=== PATIENT | female | born 1960 | race Caucasian/White ===

== ENCOUNTER 2020-06-15 08:25 | Outpatient (REF) | payer BC, SELFPAY ==
[2020-06-15 11:19] LABS: Alanine Aminotransferase 33 U/L (0-31); Albumin Level 4.6 g/dL (3.5-5.0); Alkaline Phosphatase 54 U/L (39-117); Anion Gap 13 (12-20); Aspartate Amino Transferase 30 U/L (5-31); Bilirubin Total 0.7 mg/dL (0.0-1.0); Blood Urea Nitrogen 18 mg/dL (9-16); Calcium 9.3 mg/dL (8.4-10.2); Carbon Dioxide 29 mmol/L (22-29); Chloride 102 mmol/L (96-108); Estimated Glomerular Filt Rate > 60; Glucose Random 97 mg/dL (60-115); Potassium 4.9 mmol/l (3.3-5.1); Sodium 139 mmol/L (135-145); Total Protein 7.3 g/dL (6.5-8.0)
== END 2020-06-15 08:26 | disposition home or self-care (01) ==
LOC: HO.WFDLDS 08:25
PROVIDERS: Visit Provider Family Medicine
DX: R63.4 Abnormal weight loss (principal)
CPT/HCPCS: 80053

== ENCOUNTER 2021-01-02 07:39 | Outpatient (REF) | payer BC, SELFPAY ==
[2021-01-02 10:40] LABS: MANUAL DIFF FLAG NO
[2021-01-02 10:50] LABS: Basophils Absolute Auto 0.1 X10*3/uL (0.0-0.2); Basophils Percent Auto 0.8 % (0-2); Eosinophils Absolute Auto 0.2 X10*3/uL (0.0-0.4); Eosinophils Percent Auto 2.6 % (0-4); Hematocrit 40.9 % (37-47); Hemoglobin 13.9 g/dl (12.0-16.0); Imm Gran Abs Auto 0.02 X10*3/uL (0.00-0.03); Imm Gran Pct Auto 0.3 % (0.0-0.4); Lymphocytes Absolute Auto 2.6 X10*3/uL (1.2-4.9); Lymphocytes Percent Auto 39.2 % (20-40); Mean Corpuscular Hemoglobin 32.1 pg (27.0-33.0); Mean Corpuscular Volume 94.5 fL (80-98); Mean Platelet Volume 10.8 fL (9.4-12.3); Monocytes Absolute Auto 0.7 X10*3/uL (0.1-1.2); Monocytes Percent Auto 9.9 % (2-11); Neutrophils Absolute Auto 3.2 X10*3/uL (2.0-8.3); Neutrophils Percent Auto 47.2 % (45-73); Platelet Count 258 X10*3/uL (160-400); Red Blood Count 4.33 X10*6/uL (4.20-5.50); White Blood Count 6.7 X10*3/uL (4.8-10.8)
[2021-01-02 11:50] LABS: Alanine Aminotransferase 16 U/L (0-31); Albumin Level 4.6 g/dL (3.5-5.0); Alkaline Phosphatase 56 U/L (39-117); Anion Gap 14 (12-20); Aspartate Amino Transferase 22 U/L (5-31); Bilirubin Total 0.5 mg/dL (0.0-1.0); Blood Urea Nitrogen 12 mg/dL (9-16); Calcium 9.8 mg/dL (8.4-10.2); Carbon Dioxide 26 mmol/L (22-29); Chloride 100 mmol/L (96-108); Cholesterol 218 mg/dL; Estimated Glomerular Filt Rate > 60; Glucose Random 93 mg/dL (60-115); HDL Cholesterol 71 mg/dL; LDL Cholesterol Calculated 129 mg/dl; Potassium 4.7 mmol/L (3.3-5.1); Sodium 135 mmol/L (135-145); Total Protein 7.2 g/dL (6.5-8.0); Triglycerides 93 mg/dL
[2021-01-02 12:22] LABS: TSH reflex Free T4 1.13 uIU/mL (0.32-4.0)
== END 2021-01-02 07:40 | disposition home or self-care (01) ==
LOC: HO.WFDLDS 07:39
PROVIDERS: Visit Provider Family Medicine
DX: Z00.00 Encounter for general adult medical examination without abnormal findings (principal); R63.6 Underweight
CPT/HCPCS: 36415; 80053; 80061; 84443; 85025

== ENCOUNTER 2021-04-23 11:28 | Outpatient (REF) | payer BC, SELFPAY ==
--- NOTE | ~2021-04-23 | MM_ITS ---
EXAMINATION: MM SCREENING DIGITAL BREAST TOMOSYNTHESIS, BILATERAL CLINICAL INFORMATION: Screening. Asymptomatic. Prior [id number]-[id number] mammography from [place] currently unavailable. The lifetime risk of breast cancer based on the Tyrer-Cuzick Model is 9%. COMPARISON: None. Radiology department staff will attempt to retrieve prior [id number] mammography to allow for comparison in an addendum report. TECHNIQUE: Digital breast tomosynthesis is performed in both the craniocaudal and mediolateral oblique views along with computer-aided detection (CAD). Synthesized 2D images are generated from the tomosynthesis. FINDINGS: The breasts are heterogeneously dense, which may obscure small masses (ACR BI-RADS breast composition Category c). Breast tissue composition borders on extremely dense. There is no significant mass or architectural abnormality. The axilla and skin contours are unremarkable. Left breast shows no abnormal calcifications. Right breast has tightly grouped punctate calcifications central upper position on synthesized CC view with only a few scattered isolated and coarse calcifications on synthesized right MLO view. The appearance on right CC projection may be partly due to additional digital processing artifact. Patient will be recalled for additional magnification views. MM/MM tomosynthesis screening BI IMPRESSION: 1. Right: Tightly grouped punctate calcifications and/or digital processing artifact central upper breast on synthesized CC view. 2. Left: No mammographic evidence of malignancy. ASSESSMENT: BI-RADS 0: Incomplete - Need Additional Imaging Evaluation RECOMMENDATION: 1. Additional views of the right breast (magnification CC with nipple in profile; magnification ML). 2. Radiology department staff will contact the patient for additional imaging. 3. Radiology department staff will attempt to retrieve prior [id number] mammography to allow for comparison in an addendum report. This patient's information was entered into a reminder system with a target due date for their next mammogram.
== END 2021-04-23 11:29 | disposition home or self-care (01) ==
LOC: HO.MAMMO 11:28
PROVIDERS: Visit Provider Family Medicine
DX: Z12.31 Encounter for screening mammogram for malignant neoplasm of breast (principal)
CPT/HCPCS: 77063; 77067

== ENCOUNTER 2021-05-23 08:37 | Outpatient (REF) | payer BC, SELFPAY ==
--- NOTE | ~2021-05-23 | MM_ITS ---
EXAMINATION: MM DIAGNOSTIC DIGITAL MAMMOGRAPHY, RIGHT CLINICAL INFORMATION: Recall from screening for fine calcifications versus pseudo calcifications from digital processing artifact on right CC view, not seen on prior remote outside exam 2012. Family history breast cancer, grandmother. TC score 9%. COMPARISON: Mammography: 04/23/2021, outside mammography from [facility] 01/29/2012. TECHNIQUE: Digital mammography is performed in the following views: Magnification CC x2, magnification ML x2. FINDINGS: The breasts are heterogeneously dense, which may obscure small masses (ACR BI-RADS breast composition Category c). Breast tissue composition borders on extremely dense. The additional magnification views confirm tightly grouped punctate calcifications 12:00 position mid depth, 5.6 cm from nipple on lateral view. The calcifications are within an area of approximately 3 mm across. They are new from outside mammography 2011. They are arranged in a circular distribution, possibly related to fibroadenomatous change. Results are discussed with the patient at time of visit. There are no additional mammography exams since 2012 to allow for additional comparison. Management options discussed with patient including short interval follow-up and stereotactic biopsy. MM/MM added views RT IMPRESSION: Tightly grouped punctate calcifications mid 12:00 right breast, new from remote prior outside exam 2011. ASSESSMENT: BI-RADS 4: Suspicious (subcategory 4A: Low suspicion for malignancy) RECOMMENDATION: Stereotactic biopsy right breast calcifications. If stereotactic sampling is not performed, then short interval six-month follow-up diagnostic right mammography to include magnification views are recommended. This patient's information was entered into a reminder system with a target due date for their next mammogram.
== END 2021-05-23 08:38 | disposition home or self-care (01) ==
LOC: HO.MAMMO 08:37
PROVIDERS: Visit Provider Family Medicine
DX: R92.1 Mammographic calcification found on diagnostic imaging of breast (principal)
CPT/HCPCS: 77065

== ENCOUNTER 2025-03-30 09:36 | Outpatient (AMB) | payer OTHER, SELFPAY ==
--- NOTE | 2025-03-30 09:43 | MHC.PC.OV ---
Vital Signs 03/30/25 09:48 03/30/25 10:16 Height 5 ft 1 in Weight 103 lb 8 oz BMI 19.6 BP 118/70 Blood Pressure Location Lt brachial Position Sitting Respiration 12 Pulse 113 H 90 Pulse Source Pulse Oximeter Auscultation Temp 97.1 F Temp Source Oral Pulse Oximetry (%) 99 Oxygen Delivery Method Room Air Intake Visit Reasons: CPE? Intake Note: New patient to establish care and cpe Criminal Researcher Required: No Allergies caffeine (From CAFERGOT) Allergy (Intermediate, Verified 03/30/25 09:51) VIOLENTLY ILL ergotamine (From CAFERGOT) Allergy (Intermediate, Verified 03/30/25 09:51) VIOLENTLY ILL Medication List - Last Reconciled 03/30/25 by Pearl Brito, SOCIETY EDITOR- atomoxetine 40 mg PO QAM buspirone 10 mg PO TID itrydmfkfq-kwyxknwqnloar-bvur 50-325-40 mg 1 tab PO Q4H PRN hydroxyzine HCl 25 mg PO PRN lisdexamfetamine (Vyvanse) 40 mg PO QAM PRN mirtazapine 30 mg PO BEDTIME propranolol 10 mg PO TID PRN Tobacco use date assessed: 03/30/25 Dental Screening Dental Screen Date: 03/30/25 Did you have a dental visit in the last 12 months?: Yes Did you have a dental problem in the last 6 months where you did not have access to dental care?: No Was dental information given to patient?: Patient has dentist HPI HPI Comments History of Present Illness Details 64 y/o F with ADHD, migraine headaches, TANO, hx of ectopic , s/p appy, c section, tooth extraction Social: 2 Dtrs, Sep 2024, retired, lives w/ Dtr, Cassandra. 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 Colon cologaurd ordered today Pap Tdap declined, Shingles vaccine 07/2025, DEXA ordered today Specialists: Online Psych Prescriber Counselor Here today to est care & for a CPE Previous PCP: Here years ago, moved to [place], Dr Eid, No records available. ADHD/TANO: stable on current meds; active w/ med prescriber and counselor Newly , of SCC in his nose 09/2024 Migraines: controlled w/ PRN fiorecet; better now in menopause. R knee: sore spot w/ lump on knee. Feels like maybe it went away today. Thickened toe nails on L foot. Mammo, reports bx done of R breast 2022; told benign Uses medical marijuana at HS Review of Systems - Neurological: Reports improvement in migraines. - Psychiatric: Reports anxiety, managed with hydroxyzine and buspirone. - Musculoskeletal: Reports right knee trauma post-moving. - Dermatological: Denies fungal presence on toenails, podiatry referral needed. Large mole on back, eval by Derm told normal. No other concerns or changes. - Gastrointestinal: Denies issues with bowel and bladder function. - Pain: Reports right knee discomfort. Physical Exam General: Well developed, well nourished, in no acute distress. Appears stated age. Head: Normocephalic, atraumatic. Eyes: Pupils are equal, round and reactive to light and accommodation. Conjunctivae are clear. Vision grossly normal. Ears: TMs clear AU, EACS WNL Nose: Patent, without discharge. Neck: Supple, no adenopathy or thyromegaly. Breast: Biopsy done of right breast. Edu on SBE. Lungs: Clear to auscultation bilaterally. No rales, rhonchi or wheeze noted. Good air flow in all rosales. Heart: Regular rate and rhythm. No murmurs, click, rubs or gallops are noted. Abdomen: Bowel sounds present in all quadrants. The abdomen is soft, nontender, with no masses or organomegaly noted. No hernias are noted. : Deferred. 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 Pulses: Peripheral pulses are equal and palpable bilaterally. Extremities: No clubbing, cyanosis nor edema is noted. Toenails on bilat feet thickened, worse on Left; benign exam of R knee Neurologic: Gait and station normal. Cranial Nerves 2-12 intact. Motor strength grossly symmetrical and intact. No sensory loss. Balance normal. Skin: No rashes, ulcers, or lesions noted. Turgor is good. Skin color is good. Hair and nails are without abnormalities. Psych: Normal eye contact, affect and mood appropriate, and normal interactions. Patient is alert and appropriate to context. Results - Labs pending retrieval from [facility]. Requested. - Diagnostic imaging summary: Mammo 2024 requested - Screening test: Colon cancer screening via Cologuard ordered. Discussion Notes I discussed the management of the patient's chronic conditions including ADHD, generalized anxiety disorder, migraine headaches, and insomnia. We reviewed the current medications and addressed the need for referral to podiatry for nail changes. I explained the risks and benefits of continuing medical marijuana use, emphasizing the process of obtaining licensure in [place]. Consent was obtained for the mammogram, bone density, and colon cancer screening. It's vital that labs from recent work be acquired to ensure comprehensive oversight. I outlined follow-up protocols, endorsed the download of our patient portal navjot for enhanced communication, and confirmed understanding of flu vaccination timelines. Patient was given time to ask questions. All questions were answered to their satisfaction. Assessment and Plan 1. ADHD - Continue current regimen and psychiatric consult along w. counseling. 2. Anxiety - Maintain medication. Psychiatric to manage 3. Migraines - Monitor post-menopausal improvement. - Cont fiorecet, i can refill this PRN 4. Toenail fungus - Podiatry referral for management. 6. Screening - Mammogram, bone density, and Cologuard tests ordered. Labs pending. I will request old records, labs and mammo and review; I will outreach if sooner FU is needed. Otherwise RTO 1 year CPE, sooner PRN Patient Instructions - Follow up with creative strategist for toenail evaluation. - Complete the Cologuard test and return promptly. - Utilize our navjot for appointments and inquiries. - Stay updated on flu vaccine schedule. - Continue medication for ADHD and anxiety. - Report any changes in health or medication response. Consent Patient was informed and verbally consented to the use of an ambient scribe for clinic note documentation during this visit. An additional 35 minutes was spent addressing the problem(s) noted at todays visit. This includes time spent before the visit reviewing the chart, time spent during the visit, and time spent after the visit on documentation reviewing laboratory results, diagnostic imaging, medications, performing a medically necessary evaluation, counseling on diagnoses, care coordination, ordering appropriate tests, ordering appropriate medications, review of tests performed by other providers, reporting test results with the patient, communication with other healthcare providers. [facility] Medical History (Updated 03/30/25 @ 10:27 by Pearl Brito [facility]) Ectopic (~1988) Headache Hx of mammogram (~2024) Migraines Shingles Surgical History (Updated 03/30/25 @ 09:55 by Allyson Marte MA) History of appendectomy History of section Hx of colonoscopy (~2023) Loss of teeth due to extraction Family History (Updated 03/30/25 @ 09:56 by Allyson Marte MA) Father COPD (chronic obstructive pulmonary disease) CHF (congestive heart failure) HTN (hypertension) AAA (abdominal aortic aneurysm) Asthma Heart failure Mother Neuropathy Legally blind Daughter No problems noted. Daughter No problems noted. Social History (System 06/09/23 @ 11:34 by Zulma Warren) Household Members: Children Both parents involved: No Caregiver staying overnight: No Housing: House Are you a primary career technical education instructor to a significant other at home: No Do you presently have visiting nurse or other home services: No 75 years or older and lives alone: No Alcohol intake: never Patient Tobacco Use Status: Never used Tobacco e-Cigarette/Vaping Use: Never Used Second Hand Smoke Exposure: No service: No Current occupational status: retired Cognitive needs: No Hearing needs: No Vision needs: Yes (reading glasses) Questionnaire PHQ-9 Over the last 2 weeks, how often have you been bothered by any of the following problems? 1. Little interest or pleasure in doing things: several days 2. Feeling down, depressed, or hopeless: several days 3. Trouble falling or staying asleep, or sleeping too much: not at all 4. Feeling tired or having little energy: several days 5. Poor appetite or overeating: several days 6. Feeling bad about yourself - or that you are a failure or have let yourself or your family down: not at all 7. Trouble concentrating on things, such as reading the newspaper or watching television: not at all 8. Moving or speaking so slowly that other people could have noticed. Or the opposite - being so fidgety or restless that you have been moving around a lot more than usual: not at all 9. Thoughts that you would be better off or of hurting yourself in some way: not at all Total score: 4 Depression Screening Interpretation: Negative Depression Screening Done: Yes 42053 - PHQ-9 Billing: Yes Source: Developed by Drs. James Garzon, May Torres, Almas Haywood and colleagues, with an educational alex from [employer]. Thrive Questionnaire Date Thrive assessed: 03/30/25 I am a: Patient What is your living situation today?: I have a steady place to live Within the past 12 months, did the food you bought not last and you didn't have the money to get more?: Never true Within the past 12 months, did you worry whether your food would run out before you got money to buy more?: Never true Do you have trouble paying for medicines?: No Do you have trouble getting transportation to medical appointments?: No Do you have trouble paying your heating and electricity bill?: No Do you have trouble taking care of your child, family member or friend?: No Do you have trouble with day-to-day activities such as bathing, preparing meals, shopping, managing finances, etc.?: No Are you currently unemployed and looking for a job?: No Are you interested in more education?: No Please select the resources that you would like help with: None Currently or been in a relationship where the following occur: No concerns reported THRIVE Score: 0 AUDIT C Alcohol Use Questionnaire (AUDIT-C) 1. How often do you have a drink containing alcohol?: Never 3. How often do you have six or more drinks on one occasion?: Never Total Score: 0 Score Reviewed/Action Taken: Yes TANO-7 AMB Questionnaire TANO-7 Date TANO - 7 assessed: 03/30/25 Feeling nervous, anxious, or on edge: 1 = Several days Not being able to stop or control worryin = Not at all Worrying too much about different things: 0 = Not at all Trouble relaxin = Several days Being so restless that it is hard to sit still: 1 = Several days Becoming easily annoyed or irritable: 0 = Not at all Feeling afraid as if something awful might happen: 0 = Not at all Total TANO-7 score (0-4 normal; 5-9 mild; 10-14 moderate; 15-21 severe): 3 Source: Developed by May Day Kurt Kroenke and colleagues, with an educational alex from [employer]. TANO-7 Assessment Billing TANO-7 Assessment Tool: TANO-7 Assessment 56215 Physical exam (Primary Care) Vital Signs: Last Vital Signs Temp 97.1 F 03/30/25 09:48 Pulse 113 H 03/30/25 09:48 Resp 12 03/30/25 09:48 BP 118/70 03/30/25 09:48 Pulse Ox 99 03/30/25 09:48 Oxygen Delivery Method Room Air 03/30/25 09:48 BMI result Body Mass Index 19.6 Tobacco/Smoking Status: Tobacco use Status Tobacco use date assessed 03/30/25 03/30/25 09:49 Patient Tobacco Use Status Never used Tobacco 03/30/25 09:49 e-Cigarette/Vaping Use Never Used 03/30/25 09:49 PHQ-9: PHQ-9 Score PHQ-9: Total score 4 03/30/25 09:45 Depression Screening Interpretation: Negative Thrive Assessment: Date of Thrive Assessment Date Thrive assessed 03/30/25 03/30/25 09:45 Currently or been in a relationship where the following occur: No concerns reported Coding Level of Care Code New Pt Level 4 (63275) New Pt Prev Care 40-64y(19168) Diagnoses Encounter to establish care with new provider Z76.89 Anxiety F41.9 Migraine with aura, not intractable, without status migrainosus G43.109 Attention deficit hyperactivity disorder (ADHD), predominantly inattentive type F90.0 Attention deficit-hyperactivity disorder type: predominantly inattentive Menopause Z78.0 Tetanus, diphtheria, and acellular pertussis (Tdap) vaccination declined Z28.21 Underweight R63.6 Screening for colon cancer Z12.11 Breast cancer screening by mammogram Z12.31 Onychomycosis B35.1 Marihuana user F12.90 Acute pain of right knee M25.561 Chronicity: acute Encounter for general adult medical examination without abnormal findings Z00.00 Additional Codes TANO-7 Assessment Billing - TANO-7 Assessment Tool: TANO-7 Assessment 25127 ([id number]) PHQ-9 - 38925 - PHQ-9 Billing: Yes ([id number]) Assessment & Plan Assessment & Plan (1) Encounter to establish care with new provider: Code(s): Z76.89 - Persons encountering health services in other specified circumstances (2) Anxiety: Comment: managed by outside prescriber and counselor Code(s): F41.9 - Anxiety disorder, unspecified Category: Medical (3) Migraine with aura, not intractable, without status migrainosus: Code(s): G43.109 - Migraine with aura, not intractable, without status migrainosus Category: Medical (4) ADHD: Comment: managed by outside prescriber and counselor Code(s): F90.9 - Attention-deficit hyperactivity disorder, unspecified type Category: Medical Qualifiers: Attention deficit-hyperactivity disorder type: predominantly inattentive Qualified Code(s): F90.0 - Attention-deficit hyperactivity disorder, predominantly inattentive type (5) Menopause: Comment: DEXA ordered 2024 Code(s): Z78.0 - Asymptomatic menopausal state Category: Medical (6) Tetanus, diphtheria, and acellular pertussis (Tdap) vaccination declined: Code(s): Z28.21 - Immunization not carried out because of patient refusal Category: Medical (7) Underweight: Comment: uses remeron Code(s): R63.6 - Underweight Category: Medical (8) Screening for colon cancer: Comment: cologaurd 2020, ordered today Code(s): Z12.11 - Encounter for screening for malignant neoplasm of colon Category: Medical (9) Breast cancer screening by mammogram: Comment: 2024, [facility] Code(s): Z12.31 - Encounter for screening mammogram for malignant neoplasm of breast Category: Medical (10) Onychomycosis: Comment: pod. referral [facility] Code(s): B35.1 - Tinea unguium Category: Medical (11) Marihuana user: Comment: medical Code(s): F12.90 - Cannabis use, unspecified, uncomplicated Category: Medical (12) Right knee pain: Comment: benign exam; monitor; if cont. reach out Code(s): M25.561 - Pain in right knee Category: Medical Qualifiers: Chronicity: acute Qualified Code(s): M25.561 - Pain in right knee (13) Encounter for general adult medical examination without abnormal findings: Code(s): Z00.00 - Encounter for general adult medical examination without abnormal findings Category: Medical Plan . Orders: Orders XR DEXA axial skeleton Today Z13.820 - Encounter for screening for osteoporosis, Z78.0 - Asymptomatic menopausal state MM tomosynthesis screening BI Today Z12.31 - Encounter for screening mammogram for malignant neoplasm of breast Referrals Cologuard Test Z12.11 - Encounter for screening for malignant neoplasm of colon, Z12.12 - Encounter for screening for malignant neoplasm of rectum Podiatry Referral B35.1 - Tinea unguium Patient Instructions: Walk-In Care (Urgent Care): We Make it Easy Walk-in for urgent medical issues such as: ? Seasonal Allergies ? Insect Bites ? Cough ? Diarrhea ? Acute Asthma Attacks ? Back, Knee or Joint Pain ? Ear Infection ? Fever without a Rash ? Headaches ? Nausea ? Madelia Eye, Rash or Skin Irritation ? Sore Throat ? Sports Physicals ? Vomiting Most insurances are accepted. Patients do not need to be part of the [facility] to seek care at the walk-in clinic. Locations [facility] [place] [address] ? [phone] [facility] Walk-In Care in [place] provides services to ages 18 and over. Open Thursday-Thursday: 8 a.m. to 5 p.m. and Thursday: 9 a.m. to 3 p.m.* *Hours may vary due to staffing availability. To confirm Walk-In Care hours in [place], please call [phone]. [address] [place] [address] ? [phone] [facility] Walk-In Care in [place] provides services to ages 12 and over. Open Thursday-Thursday: 8 a.m. to 5 p.m. Hours may vary due to staffing availability. To confirm Walk-In Care hours in [place], please call [phone]. LABORATORY SERVICES: [facility] Lab ? Primary Location [address] [place] [address] Thursday through Thursday 6:00 AM ? 5:00 PM Thursday 7:00 AM ? 11:00 AM* [phone] The [facility] Lab is centrally located near the front entrance of the [facility] for easy outpatient access. Convenient parking is provided for outpatients. *Hours may vary due to staffing availability. To confirm Laboratory hours for any location, please call [phone]. Offsite Location For your convenience, we offer offsite laboratory draw stations at the following locations: [address] [facility] [place] [address] [facility] [address] [facility], [address], [place] Thursday through Thursday 7:30 AM ? 1:00 PM* [phone] *Hours may vary due to staffing availability. To confirm Laboratory hours for any location, please call [phone]. [place] ? [facility] [address] [facility] Thursday through Thursday 6:00 AM ? 3:30 PM* Thursday 6:30 AM ? 3 PM* [phone] *Hours may vary due to staffing availability. To confirm Laboratory hours for any location, please call [phone]. [address] [facility] Thursday through Thursday 7:30 AM ? 4:00 PM* [phone] *Hours may vary due to staffing availability. To confirm Laboratory hours for any location, please call [phone] [place] [address] Thursday through 9:00 AM ? 4:00 PM* *Hours may vary due to staffing availability. To confirm Laboratory hours for any location, please call [phone]. Appointments are not necessary. Walk-ins are welcome. Like all the departments throughout the [facility], our Lab undergoes frequent reviews to ensure the quality and accuracy of test results, and our staff takes special pride in its status as a nationally accredited facility. Patient Portal: ONE PATIENT. ONE RECORD. BETTER CARE. [facility] has a fully integrated, cutting-edge mobile electronic health information system that has revolutionized the way we care for our patients and manage our organization. This system improves communication and coordination enabling us to provide safe, higher-quality care, and an overall positive experience for staff and patients. Our first priority, as always, is to deliver the highest quality care possible. The system is running in the background supporting that priority. This portal is for all [facility] services and practices. If you are experiencing any technical difficulties with enrolling or logging into the Patient Portal please complete the [facility] Patient Portal Technical Support Form. [facility] now offers a new secure on-line interactive tool for patients to review their health information ? ?Patient Portal. This interactive web portal will enable patients and their families to take an active role in their care by providing easy, secure access to their health information via the internet. The Patient Portal provides patients with instant access to their health information, including laboratory results, medications, allergies, demographic information, visit history, and more. In addition to managing their own care, parents and health care proxies with authorized consent will appreciate the ability to access the records of those individuals for whom they provide care. Please note: if you wish to gain access (Proxy) to another patient?s portal, you will be required to come to the Medical Records Department in person at [facility]. Both the patient giving proxy access and the proxy will need to provide photo identification and complete the appropriate authorization. The Patient Portal also allows track their appointments online. The [facility] Patient Portal also saves patients time by allowing them to submit updates to their demographic and contact information prior to their visits. Portal email notifications will also alert patients to any new activity on their portal, such as test results and new appointments. In order to initially enroll in the [facility] Patient Portal, you will need to enter some required information including the following: your [facility] Medical Record number your personal home email address name date of Please note: In order to enroll in the [facility] Patient Portal, we need to have your email address on file in your electronic medical record. ?The email address needs to be specific for one person (yourself) in order for your Portal enrollment to be successful. ?You can update your email address in person with our Registration staff when you are registering for a hospital visit. ?Otherwise, you will need to come to the Health Information Management (Medical Records) Department at [facility]. ?We are open from Thursday ? Thursday from 7:30 a.m. ? 4:30 p.m. ?You will be required to present a photo id. Once you have successfully enrolled in the Patient Portal, you will receive a one-time user id and password for the Portal, sent to your email address. ?This will allow you to log into the Patient Portal within 99 hrs and reset your own logon id and password, and define personal security questions. ?Once your permanent login and password have been set, you can log into the [facility] Patient Portal at any time via the blue button above or from the Portal Logon button on any page of the [facility] website. [facility] encourage all of our patients to enroll in Patient Portal as it presents a valuable opportunity for patients and their families to actively participate in their care and stay healthy Welcome to [facility]. ?We look forward to working with you. Health screenings for women You should visit your health care provider from time to time, even if you are healthy. The purpose of these visits is to: Screen for medical issues Assess your risk for future medical problems Encourage a healthy lifestyle Update vaccinations and other preventive care services Help you get to know your provider in case of an illness Information Even if you feel fine, you should still see your provider for regular checkups. These visits can help you avoid problems in the future. For example, the only way to find out if you have high blood pressure is to have it checked regularly. High blood sugar and high cholesterol levels also may not have any symptoms in the early stages. A simple blood test can check for these conditions. There are specific times when you should see your provider or receive specific health screenings. The [place] Preventive Services Task Force publishes a list of recommended screenings. Below are screening guidelines for women ages 18 to 39. BLOOD PRESSURE SCREENING Your blood pressure should be checked at least once every 3 to 5 years if: Your blood pressure is in the normal range (top number less than 120 mm Hg and bottom number less than 80 mm Hg) You don't have risk factors for high blood pressure Ask your provider if you need your blood pressure checked more often if: The top number is 120 to 129 mm Hg or the bottom number is 70 to 79 mm Hg You have diabetes, heart disease, kidney problems, are overweight, or have certain other health conditions You have a first-degree relative with high blood pressure You are Black You had high blood pressure during a If the top number is 130 mm Hg or greater or the bottom number is 80 mm Hg or greater, this is considered stage 1 hypertension. Schedule an appointment with your provider to learn how you can reduce your blood pressure. Watch for blood pressure screenings in your area. Ask your provider if you can stop in to have your blood pressure checked. BREAST CANCER SCREENING Experts do not agree about the benefits of breast self-exams in finding breast cancer or saving lives. Talk to your provider about what is best for you. A screening mammogram is not recommended for most women under age 40. Your provider may discuss and recommend mammograms, MRI scans, or ultrasounds if you have an increased risk for breast cancer, such as: A mother or sister who had breast cancer at a young age (most often starting screening earlier than the age the close relative was diagnosed) You carry a high-risk genetic marker CERVICAL CANCER SCREENING Cervical cancer screening should start at age 21 years unless your provider advises otherwise. After the first test: Women ages 21 through 29 should have a Pap test every 3 years. Exoprts do not agree on whether HPV testing is recommended for this age group. Women ages 30 through 65 should be screened with either a Pap test every 3 years or the HPV test every 5 years or both tests every 5 years (called cotesting ). Women who have been treated for precancer (cervical dysplasia) should continue to have Pap tests for 20 years after treatment or until age 65, whichever is longer. If you have had your uterus and cervix removed (total hysterectomy), and you have not been diagnosed with cervical cancer or precancer (high grade cervical neoplasia), you do not need cervical cancer screening. CHOLESTEROL SCREENING Cholesterol screening should begin at: Age 45 for women with no known risk factors for coronary heart disease Age 20 for women with known risk factors for coronary heart disease Repeat cholesterol screening should take place: Every 5 years for women with normal cholesterol levels More often if changes occur in lifestyle (including weight gain and diet) More often if you have diabetes, heart disease, kidney problems, or certain other conditions DIABETES SCREENING You should be screened for diabetes starting at age 35 and then repeated every 3 years if you have no risk factors for diabetes. Screening may need to start earlier and be repeated more often if you have other risk factors for diabetes, such as: You have a first degree relative with diabetes. You are overweight or have obesity. You have high blood pressure, prediabetes, or a history of heart disease. Screening for diabetes should be done if you are planning to become and you are overweight and have other risk factors such as high blood pressure. DENTAL EXAM Go to the dentist once or twice every year for an exam and cleaning. Your dentist will evaluate if you need more frequent visits. EYE EXAM Have an eye exam every 5 to 10 years before age 40. If you have vision problems, have an eye exam every 2 years or more often if recommended by your provider. You should have an eye exam that includes an examination of your retina (back of your eye) at least every year if you have diabetes. IMMUNIZATIONS Commonly needed vaccines include: Flu shot: get one every year. COVID-19 vaccine: ask your provider what is best for you. Tetanus-diphtheria and acellular pertussis (Tdap) vaccine: have one at or after age 19 as one of your tetanus-diphtheria vaccines if you did not receive it as an adolescent. Tetanus-diphtheria: have a booster (or Tdap) every 10 years. Varicella vaccine: receive 2 doses if you never had chickenpox or the varicella vaccine. Hepatitis B vaccine: receive 2, 3, or 4 doses, depending on your exact circumstances. Measles, mumps, and rubella (MMR) vaccine: receive 1 to 2 doses if you are not already immune to MMR. Your provider can tell you if you are immune. Ask your provider about the human papillomavirus (HPV) vaccine if: You have not received the HPV vaccine in the past You have not completed the full vaccine series (you should catch up on this shot) Ask your provider if you should receive other immunizations if you have certain health problems that increase your risk for some diseases such as pneumonia. INFECTIOUS DISEASE SCREENING Women who are sexually active should be screened for chlamydia and gonorrhea up until age 25. Women 25 years and older should be screened for chlamydia and gonorrhea if at high risk. Screening for hepatitis C: All adults ages 18 to 79 should get a one-time test for hepatitis C. people should be screened at every . Screening for human immunodeficiency virus (HIV): All people ages 15 to 65 should get a one-time test for HIV. Depending on your lifestyle and medical history, you may also need to be screened for infections such as syphilis and HIV, as well as other infections. PHYSICAL EXAM All adults should visit their provider from time to time, even if they are healthy. The purpose of these visits is to: Screen for disease Assess your risk of future medical problems Encourage a healthy lifestyle Update your vaccinations and other preventive care services Maintain a relationship with a provider in case of an illness Your height, weight, and BMI should be checked at every exam. During your exam, your provider may ask you about: Depression and anxiety Diet and exercise Alcohol and tobacco use Safety issues, such as using seat belts, smoke detectors, and intimate partner violence Your medicines and risk for interactions SKIN SELF-EXAM Your provider may check your skin for signs of skin cancer, especially if you're at high risk, such as if you: Have had skin cancer before Have close relatives with skin cancer Have a weakened immune system OTHER SCREENING Talk with your provider about colon cancer screening if you have a strong family history of colon cancer or polyps, or if you have had inflammatory bowel disease or polyps yourself. Routine bone density screening of women under 40 is not recommended.
[2025-03-30 09:48] VITALS: BP 118/70; PULSE 113; RESP 12; TEMP 36.2; O2SAT 99; BMI 19.6
[2025-03-30 10:16] VITALS: PULSE 90
== END 2025-03-30 10:21 | disposition home or self-care (01) ==
LOC: HO.HMCFM 09:37
PROVIDERS: PCP Nurse Practitioner Family; Visit Provider Nurse Practitioner Family
DX: Z00.00 Encounter for general adult medical examination without abnormal findings (principal); G43.109 Migraine with aura, not intractable, without status migrainosus; F41.9 Anxiety disorder, unspecified; F90.0 Attention-deficit hyperactivity disorder, predominantly inattentive type; R63.6 Underweight; Z76.89 Persons encountering health services in other specified circumstances; Z78.0 Asymptomatic menopausal state; Z28.21 Immunization not carried out because of patient refusal; Z12.11 Encounter for screening for malignant neoplasm of colon; B35.1 Tinea unguium; F12.90 Cannabis use, unspecified, uncomplicated; M25.561 Pain in right knee

== ENCOUNTER → 2025-03-30 09:36 | Outpatient (BNVA) | payer OTHER, SELFPAY | PROVIDERS: PCP Nurse Practitioner Family; Visit Provider Nurse Practitioner Family | DX: Z00.00 Encounter for general adult medical examination without abnormal findings (principal); G43.909 Migraine, unspecified, not intractable, without status migrainosus; K21.9 Gastro-esophageal reflux disease without esophagitis; F41.9 Anxiety disorder, unspecified; B35.1 Tinea unguium; G43.109 Migraine with aura, not intractable, without status migrainosus; F90.0 Attention-deficit hyperactivity disorder, predominantly inattentive type; R63.6 Underweight; F12.90 Cannabis use, unspecified, uncomplicated; M25.561 Pain in right knee; Z78.0 Asymptomatic menopausal state; Z28.21 Immunization not carried out because of patient refusal; Z76.89 Persons encountering health services in other specified circumstances | CPT/HCPCS: 96127 ==

== ENCOUNTER 2025-04-24 12:53 | Outpatient (AMB) | payer OTHER, SELFPAY ==
--- NOTE | 2025-04-24 13:12 | A.OFFVIS_ITS ---
Vital Signs 3 04/24/25 13:15 Height 5 ft 1 in Weight 103 lb BMI 19.5 Intake Visit Reasons: New Pt- Bilateral tinea unguium Intake Note: Hector is a 64 year old female who presents today as a new patient for an evaluation of her bilateral tinea unguium. She mentions that this has been going on for about 10 years. She has not tried OTC fungal cream recently. Patient report it is worst on her left toes and mild on the right. Allergies caffeine (From CAFERGOT) Allergy (Intermediate, Verified 04/24/25 13:15) VIOLENTLY ILL ergotamine (From CAFERGOT) Allergy (Intermediate, Verified 04/24/25 13:15) VIOLENTLY ILL Medication List - Last Reconciled 04/24/25 by Linn Breen DPM buspirone 10 mg PO TID [id number] 50-325-40 mg 1 tab PO Q4H PRN hydroxyzine HCl 25 mg PO PRN lisdexamfetamine (Vyvanse) 40 mg PO QAM PRN mirtazapine 30 mg PO BEDTIME HPI Comments Details: This patient is a 64 year old female with a PMH as seen below who presents today for fungal toenails. Patient states she has had this condition for 15 years but has not done any previous treatment. She states she previously noticed it on 1 toe to the left foot, but then noticed it spreading to the remaining 4 toes. She states she is worried about spreading to the right foot. 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 She denies any recent trauma. Denies any other pedal concerns. Denies any nausea vomiting fever or chills. [facility] Medical History Shingles Migraines Headache Hx of mammogram (~2024) Ectopic (~1988) Surgical History Hx of colonoscopy (~2023) Loss of teeth due to extraction History of section History of appendectomy Family History (Updated 03/30/25 @ 09:56 by Allyson Marte MA) Father COPD (chronic obstructive pulmonary disease) CHF (congestive heart failure) HTN (hypertension) AAA (abdominal aortic aneurysm) Asthma Heart failure Mother Neuropathy Legally blind Daughter No problems noted. Daughter No problems noted. Social History (Updated 03/30/25 @ 09:53 by Allyson Marte MA) Household Members: Children Housing: House Are you a primary child day care teacher to a significant other at home: No Do you presently have visiting nurse or other home services: No Alcohol intake: never Patient Tobacco Use Status: Never used Tobacco e-Cigarette/Vaping Use: Never Used Second Hand Smoke Exposure: No service: No Current occupational status: retired Cognitive needs: No Hearing needs: No Vision needs: Yes (reading glasses) Review of Systems Const All systems reviewed & are unremarkable except as noted in HPI and below Physical Exam Vital Signs: BMI result Body Mass Index 19.5 Extrem Other: Left lower extremity focused physical exam: Derm: Toenails noted to be slightly elongated, incurvated, and thickened with subungual debris noted x5. No open lesions abrasions or wounds noted. No clinical signs of infection. Skin turgor soft and within normal limits. Toenails to the right noted to be slightly elongated. Vascular: DP/PT pulses palpable. Capillary refill time less than 3 seconds. No varicosities noted. Pedal hair noted. Neuro: Protective sensation is grossly intact. Musculoskeletal: No pain on palpation to the forefoot and nails. Range of motion of the forefoot and hindfoot within normal limits. Gait within normal limits. Ankle/foot/toe images: 2 1. Left foot toenails Office Procedures AMB Debridement/Avulsion Podia 33247-Mreyfkqmptm of Nail <6 Nail Biopsy: [id number] Nail unit biopsy Procedure code (CPT) selection complete Office Meds lidocaine HCl 10 mg/mL (1 %) injection solution Performing Provider: Linn Breen DPM Performing Location: [facility] Documented (not given) by: Linn Breen DPM on 04/24/25 13:52 Reason Not Given: Not Medically Necessary Results Reviewed Results Reviewed: Patient states she will be obtaining new labs in the next coming weeks. Discussed with patient importance of LFTs being within normal limits in ordered to be started on oral antifungal medication. Assessment & Plan Assessment & Plan (1) [place]: Comment[place] [facility] [place]s): B35.1 - Tinea unguium Category: Medical (2) Nail dystrophy: Code(s): L60.3 - Nail dystrophy Category: Medical (3) Nail disorder: Code(s): L60.9 - Nail disorder, unspecified Category: Medical Plan Discussed diagnosis of onychomycosis with the patient. Discussed various treatment options such as topical medication and oral medication. Recommend patient start with topical medication at this time. Obtained nail biopsies of left foot toenails x5 to be sent to pathology. Discussed with the patient topical medication normally takes approximately 9 months to 1 year or longer for significant changes to be noted. Discussed with patient importance of LFTs being within normal limits in order to start oral medication. Discussed with patient to keep her feet clean and dry. Prescribed ciclopirox 8% topical solution to be applied daily. Discussed with patient when using the topical solution to file down the previous layer prior to a new application of the topical solution. Patient is to return to the office in 1 month for re-evaluation of nails, evaluation of labs, and possible oral medication. Orders: Orders 2 Surgical Today B35.1 - Tinea unguium, L60.3 - Nail dystrophy, L60.9 - Nail disorder, unspecified AMB Debridement/Avulsion Podiatry Today B35.1 - Tinea unguium, L60.3 - Nail dystrophy, L60.9 - Nail disorder, unspecified AMB Nail Biopsy Today B35.1 - Tinea unguium, L60.3 - Nail dystrophy, L60.9 - Nail disorder, unspecified Medications: New 2 ciclopirox 8% 1 appl topical BEDTIME 6.6 mL 0RF Onychomycosis 4 weeks B35.1 - Tinea unguium, L60.3 - Nail dystrophy, L60.9 - Nail disorder, unspecified Coding Level of Care Code New Pt Level 3 (14151) Diagnoses Onychomycosis B35.1 Nail dystrophy L60.3 Nail disorder L60.9 CPT Codes Skin Debridement - CPT: 34960-Jehwjrrnqwr of Nail <6 ([id number]) Skin Debridement - CPT: 52039 Nail unit biopsy ([id number]) Time Spent (min) 30
[2025-04-24 13:15] VITALS: BMI 19.5
== END 2025-04-24 13:41 | disposition home or self-care (01) ==
LOC: HO.HPODS 12:54
PROVIDERS: PCP Nurse Practitioner Family; Visit Provider Student in an Organized Health Care Education/Training Program
DX: B35.1 Tinea unguium (principal); L60.3 Nail dystrophy; L60.9 Nail disorder, unspecified
CPT/HCPCS: 11720; 99204

== ENCOUNTER 2025-04-24 13:34 | Outpatient (REF) | payer OTHER, SELFPAY | END 2025-04-24 13:35 | disposition home or self-care (01) | LOC: HO.LNP 13:34 | PROVIDERS: Visit Provider Student in an Organized Health Care Education/Training Program | DX: B35.1 Tinea unguium (principal); L60.3 Nail dystrophy; Z79.899 Other long term (current) drug therapy | CPT/HCPCS: 88304; 88312 ==

== ENCOUNTER 2025-05-23 13:24 | Outpatient (REF) | payer OTHER, SELFPAY ==
--- NOTE | ~2025-05-23 | MM_ITS ---
EXAMINATION: DXA BONE DENSITY AXIAL HISTORY: Z13.820 - Encounter for screening for osteoporosis TECHNIQUE: [employer] Dual energy absorptiometry (DEXA) of the lumbar spine, total left hip, and femoral neck was performed. COMPARISON: There are no prior studies for comparison. FINDINGS: The bone mineral density of the lumbar spine is 1.073 g/cm2, corresponding to a T-score of -0.9, and a Z-score of 1.2. This is indicative of normal bone mineral density. The bone mineral density of the left total hip is 0.780 g/cm2, corresponding to a T-score of -1.8, and a Z-score of -0.3. This is indicative of osteopenia. The bone mineral density of the left femoral neck is 0.694 g/cm2, corresponding to a T-score of -2.5, and a Z-score of -0.7. This is indicative of osteoporosis. MM/XR DEXA axial skeleton IMPRESSION: Based on bone mineral density, and according to World Health Organization (WHO) criteria, the diagnosis is consistent with osteoporosis. Statistically, 68% of repeat scans fall within 1 SD (+/- 0.010 g/cm2 for AP spine L1-L4) and 1 SD (+/- 0.012 g/cm2 for femur total) FRAX is a trademark of the [employer] [facility] [employer], a World Health Organization (WHO) Collaborating Center. Electronically signed by: James Means MD 05/23/2025 01:50 PM EDT
== END 2025-05-23 13:25 | disposition home or self-care (01) ==
LOC: HO.MAMMO 13:24
PROVIDERS: PCP Nurse Practitioner Family; Visit Provider Nurse Practitioner Family
DX: Z13.820 Encounter for screening for osteoporosis (principal); Z78.0 Asymptomatic menopausal state
CPT/HCPCS: 77080

== ENCOUNTER → 2025-05-23 13:30 | Outpatient (BNV) | payer OTHER, SELFPAY | PROVIDERS: PCP Nurse Practitioner Family; Visit Provider Radiology Diagnostic Radiology | DX: E28.39 Other primary ovarian failure (principal) | CPT/HCPCS: 77080 ==

== ENCOUNTER 2025-05-24 09:57 | Outpatient (AMB) | payer OTHER, SELFPAY ==
--- NOTE | 2025-05-24 10:09 | A.OFFVIS_ITS ---
Vital Signs 05/24/25 10:21 Height 5 ft 1 in Weight 103 lb BMI 19.5 Intake Visit Reasons: Follow Up Bilateral tinea unguium Intake Note: Hector is a 65 year old female who presents today for a follow up on her bilateral tinea unguium. During her last visit she was prescribed ciclopirox 8% topical solution to be applied once daily. Pt states she has been using the medications and finds that it has been helping her relieve her symptoms. She has been using the ciclopirox nightly and is almost done with course. Allergies caffeine (From CAFERGOT) Allergy (Intermediate, Verified 05/24/25 10:22) VIOLENTLY ILL ergotamine (From CAFERGOT) Allergy (Intermediate, Verified 05/24/25 10:22) VIOLENTLY ILL HPI Comments Details: The patient is a 65-year-old female presenting for follow-up for left foot onychomycosis. The condition has been improving with the use of ciclopirox applied nightly. The patient reports no adverse reactions to the treatment and notes that the nail color is becoming clearer, and a reduction in subungual debris. The patient states she applies the ciclopirox to bilateral toenails. The patient engages in daily ROM exercises of the feet and reports improved mobility in her toes. Denies any other pedal concerns. Denies any nausea vomiting fever or chills. COUNTS INCLUDE 234 BEDS AT THE [facility] Medical History (Updated 05/23/25 @ 15:52 by LAUREEN Lovelace-GARRET) Nail disorder Nail dystrophy Shingles Migraines Headache Hx of mammogram (~2024) Ectopic (~1988) Surgical History (Updated 05/10/25 @ 11:25 by ADDIE Lovelace) Hx of colonoscopy (~04/2025) Loss of teeth due to extraction History of section History of appendectomy Family History (Updated 03/30/25 @ 09:56 by Allyson Marte MA) Father COPD (chronic obstructive pulmonary disease) CHF (congestive heart failure) HTN (hypertension) AAA (abdominal aortic aneurysm) Asthma Heart failure Mother Neuropathy Legally blind Daughter No problems noted. Daughter No problems noted. Social History (Updated 03/30/25 @ 09:53 by Allyson Marte MA) Household Members: Children Both parents involved: No Caregiver staying overnight: No Housing: House Are you a primary rental boats caretaker to a significant other at home: No Do you presently have visiting nurse or other home services: No 75 years or older and lives alone: No Alcohol intake: never Patient Tobacco Use Status: Never used Tobacco e-Cigarette/Vaping Use: Never Used Second Hand Smoke Exposure: No service: No Current occupational status: retired Cognitive needs: No Hearing needs: No Vision needs: Yes (reading glasses) Review of Systems Const Details: - Dermatological: Reports improvement in nail condition with clearer color and reduced subungual debris. Denies any adverse reactions to ciclopirox. - Musculoskeletal: Reports improved mobility in toes. All systems reviewed & are unremarkable except as noted in HPI and below Physical Exam Extrem Other: Left lower extremity focused physical exam: Derm: Toenails noted to be or normal length, slightly incurvated, and thickened. Discoloration noted to be slightly improved with the worse being the hallucal nail. Improvement noted due to decreased subungual debris noted x5. No open lesions abrasions or wounds noted. No clinical signs of infection. Skin turgor soft and within normal limits. Vascular: DP/PT pulses palpable. Capillary refill time less than 3 seconds. No varicosities noted. Pedal hair noted. Neuro: Protective sensation is grossly intact. Musculoskeletal: No pain on palpation to the forefoot and nails. Improved flexibility noted to the left forefoot. ROM of B/L forefoot, hindfoot, and ankles within normal limits. No crepitus noted. Gait within normal limits unassisted. Results Reviewed Results Reviewed: Pathology of left hallucal nail (04/25/25): Abundant fungi identified, present in all nail fragments. Assessment & Plan Assessment & Plan (1) Onychomycosis: Comment: pod. referral [facility] [place] Code(s): B35.1 - Tinea unguium Category: Medical (2) Nail dystrophy: Code(s): L60.3 - Nail dystrophy Category: Medical (3) Nail disorder: Code(s): L60.9 - Nail disorder, unspecified Category: Medical Plan Patient was informed and verbally consented to the use of an ambient scribe for clinic note documentation during this visit. I discussed with the patient the current management of her onychomycosis using ciclopirox, emphasizing the importance of consistent nightly application. We reviewed the pathology results, confirming the fungal infection is present to the toenails. I advised her to return in two months for reassessment and discussed the possibility of switching to oral medication if appearance worsens. - Refilled Rx of Ciclopirox. - Continue nightly application of ciclopirox for onychomycosis management (Discussed with patient when using the topical solution to continue to file down the previous layer prior to a new application of the topical solution). - Discussed with the patient topical medication normally takes approximately 9 months to 1 year or longer for significant changes to be noted. - Advised patient to keep feet and shoes clean and dry. - Consider transition to oral antifungal medication if symptoms worsen. RTC in two months to assess treatment progress. If there are worsening symptoms or adverse events, patient may come in sooner. Medications: Refilled ciclopirox 8% 1 appl topical BEDTIME 6.6 mL 0RF Onychomycosis 4 weeks B35.1 - Tinea unguium, L60.3 - Nail dystrophy, L60.9 - Nail disorder, unspecified Coding Level of Care Code Est Pt Level 3 (99718) Diagnoses Onychomycosis B35.1 Nail dystrophy L60.3 Nail disorder L60.9 Time Spent (min) 30
[2025-05-24 10:21] VITALS: BMI 19.5
== END 2025-05-24 10:23 | disposition home or self-care (01) ==
LOC: HO.HPODS 09:58
PROVIDERS: PCP Nurse Practitioner Family; Visit Provider Student in an Organized Health Care Education/Training Program
DX: B35.1 Tinea unguium (principal); L60.3 Nail dystrophy; L60.9 Nail disorder, unspecified
CPT/HCPCS: 99213

== ENCOUNTER 2025-05-29 15:27 | Outpatient (AMB) | payer OTHER, SELFPAY ==
--- NOTE | 2025-05-29 15:25 | A.OFFPC_ITS ---
Intake Visit Reasons: telehealth to review DEXA results Intake Note: Telehealth to review dexa results. Community Engagement Manager Required: No Allergies caffeine (From CAFERGOT) Allergy (Intermediate, Verified 05/29/25 15:38) VIOLENTLY ILL ergotamine (From CAFERGOT) Allergy (Intermediate, Verified 05/29/25 15:38) VIOLENTLY ILL Medication List - Last Reconciled 05/29/25 by Pearl Brito, PAINT ROLLER COVER MACHINE SETTER-BC buspirone 10 mg PO TID vsjklfoctf-vrbhdhgbvjryp-dfcz 50-325-40 mg 1 tab PO BID PRN ciclopirox 8% 1 appl topical BEDTIME 4 weeks hydroxyzine HCl 25 mg PO PRN lisdexamfetamine (Vyvanse) 40 mg PO QAM PRN mirtazapine 30 mg PO BEDTIME Tobacco use date assessed: 05/29/25 Fall risk assessment: No Falls in past year Last assessed Fall Risk: 05/29/25 Dental Screening Dental Screen Date: 03/30/25 HPI HPI Comments History of Present Illness Details 65 y/o F with ADHD, migraine headaches, TANO, hx of ectopic , osteoporosis s/p appy, c section, tooth extraction Social: 2 Dtrs, Sep 2024, retired, lives w/ Dtr, Cassandra. 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 Start fosamax 05/2025, repeat DEXA 05/2026 Specialists: Online Psych Prescriber Counselor History of Present Illness The patient is a 65 year old female presenting with osteoporosis. Osteoporosis: - Bone density test indicated osteoporos is; lumbar spine normal. - Osteopenia detected in the left hip, o steoporosis in L femoral neck. - Reviewed tx plan to include fosamax, r eferral to endo for alternative treatments, wt bearing exercise, fall prevention and Ca+D - She does not want a referral to endo o r extensive labs done; prefers to start w/ fosamax and re-eval in 1 year. If worse, would consider endo referral. - Edu how to take med and side effects t o report. Review of Systems - Musculoskeletal: Reports left-sided hi p pain, associated with osteoporosis. - Dental: Reports jaw pain, with history of TMJ disorder. - General: Denies systemic symptoms not related to osteoporosis or TMJ. Physical Exam Limited physical exam was conducted Awake alert NAD Speaking in full sentences Engaging, appropriate Skin pink warm and dry Mood and affect appropriate Results - Bone Density Test: Osteoporosis noted Assessment and Plan 1. Osteoporosis - Osteoporosis diagnosis confirmed; Fosa max once weekly prescribed. - Educated on correct administration - Advised dietary modification and use o f Viactiv chews OTC - One-year follow-up for bone density pl anned. - Consider alternate treatments post end ocrinology consult if needed. Patient was given time to ask questions. All questions were answered to their satisfaction. Telehealth Attestation The visit was conducted via teleconference, and all gathered information has been accurately documented. The patient has been explained that this is an interactive (audio/video) telehealth encounter and what that consists of. The patient understands and wishes to proceed. [employer] platform was used. Total time spent caring for the patient today was 15 minutes. This includes time spent before the visit reviewing the chart, time spent during the visit, and time spent after the visit on documentation, reviewing laboratory results, diagnostic imaging, medications, performing a medically necessary evaluation, counseling on diagnoses, care coordination, ordering appropriate tests, ordering appropriate medications, review of tests performed by other providers, reporting test results with the patient, communication with other healthcare providers. [facility] Medical History (Updated 05/29/25 @ 15:49 by Pearl rBito, PAINT ROLLER COVER MACHINE SETTER-) Ectopic (~1988) Headache Hx of mammogram (~2024) Migraines Nail disorder Nail dystrophy Shingles Surgical History (Updated 05/10/25 @ 11:25 by Pearl Brito, PA[employer] ROLLER COVER MACHINE SETTER-BC) History of appendectomy History of section Hx of colonoscopy (~04/2025) Loss of teeth due to extraction Family History (Updated 03/30/25 @ 09:56 by Allyson Marte MA) Father COPD (chronic obstructive pulmonary disease) CHF (congestive heart failure) HTN (hypertension) AAA (abdominal aortic aneurysm) Asthma Heart failure Mother Neuropathy Legally blind Daughter No problems noted. Daughter No problems noted. Social History (Updated 03/30/25 @ 09:53 by Allyson Marte MA) Household Members: Children Both parents involved: No Caregiver staying overnight: No Housing: House Are you a primary long term care pharmacist to a significant other at home: No Do you presently have visiting nurse or other home services: No 75 years or older and lives alone: No Alcohol intake: never Patient Tobacco Use Status: Never used Tobacco e-Cigarette/Vaping Use: Never Used Second Hand Smoke Exposure: No service: No Current occupational status: retired Cognitive needs: No Hearing needs: No Vision needs: Yes (reading glasses) Questionnaire Thrive Questionnaire Date Thrive assessed: 03/30/25 TANO-7 AMB Questionnaire TANO-7 Date TANO - 7 assessed: 03/30/25 Source: Developed by Drs. James Garzon, May Torres, Almas Haywood and colleagues, with an educational alex from [employer]. Physical exam (Primary Care) Tobacco/Smoking Status: Tobacco use Status Tobacco use date assessed 05/29/25 05/29/25 15:27 Patient Tobacco Use Status Never used Tobacco 05/29/25 15:25 e-Cigarette/Vaping Use Never Used 05/29/25 15:25 Thrive Assessment: Date of Thrive Assessment Date Thrive assessed 03/30/25 05/29/25 15:25 Telehealth Telehealth Telehealth Platform: [facility] Location of provider rendering services: practice address Location of patient: address on file Patient Identification confirmed using: Name, : Yes Telehealth method: video Patient verbally consented to treatment: Yes Patient verbally consented to billing insurance company: Yes Patient informed of any privacy concerns related to visit: Yes Minutes spent on Phone/Video with Pt.: 7 Results Reviewed Results Reviewed: Mammo 01/2025 WNL DEXA 05/2025 Based on bone mineral density, and according to World Health Organization (WHO) criteria, the diagnosis is consistent with osteoporosis. Visit requested to review Coding Level of Care Code Tele Est Pt Level 2 (36081) Complex EM visit Add On G2211 Diagnoses Osteoporosis without current pathological fracture, unspecified osteoporosis type M81.0 Osteoporosis type: unspecified Presence of current pathological fracture: without current pathological fracture Encounter to discuss test results Z71.2 Assessment & Plan Assessment & Plan (1) Osteoporosis: Onset Date: ~05/23/25 Comment: Based on bone mineral density, and according to World Health Organization (WHO) criteria, the diagnosis is consistent with osteoporosis. Code(s): M81.0 - Age-related osteoporosis without current pathological fracture Category: Medical Qualifiers: Osteoporosis type: unspecified Presence of current pathological fracture: without current pathological fracture Qualified Code(s): M81.0 - Age- related osteoporosis without current pathological fracture (2) Encounter to discuss test results: Code(s): Z71.2 - Person consulting for explanation of examination or test findings Plan . Orders: Orders XR DEXA axial skeleton 1 Year M81.0 - Age-related osteoporosis without current pathological fracture, Z13.820 - Encounter for screening for osteoporosis Medications: New alendronate (Fosamax) 70 mg PO QWEEK 12 tabs 2RF
== END 2025-05-29 15:50 | disposition home or self-care (01) ==
LOC: HO.HMCFM 15:28
PROVIDERS: PCP Nurse Practitioner Family; Visit Provider Nurse Practitioner Family
DX: M81.0 Age-related osteoporosis without current pathological fracture (principal); Z71.2 Person consulting for explanation of examination or test findings

== ENCOUNTER 2025-07-20 09:19 | Outpatient (AMB) | payer OTHER, SELFPAY ==
[2025-07-20 09:32] VITALS: BMI 19.5
--- NOTE | 2025-07-20 09:32 | A.OFFVIS_ITS ---
Vital Signs 07/20/25 09:32 Height 5 ft 1 in Weight 103 lb BMI 19.5 Intake Visit Reasons: fungal nails Intake Note: Hector is a 65 year old female who presents today for a follow up on her fungal nails. At her last visit her Ciclopirox 8% prescription was refilled. Patient reports she has seen slight improvement since her last visit and she currently has no questions or concerns. Allergies caffeine (From CAFERGOT) Allergy (Intermediate, Verified 07/20/25 09:33) VIOLENTLY ILL ergotamine (From CAFERGOT) Allergy (Intermediate, Verified 07/20/25 09:33) VIOLENTLY ILL HPI Comments Details: The patient is a 65 year old female presenting for a follow-up visit for left foot onychomycosis. She reports improvement in her nails and has been filing them nightly in between applications, which she believes is helping. She is using Ciclopirox and applies it to all nails. At the beginning of treatment, she experienced some redness after nicking herself with the applicator but has had no other reactions to the medication. She denies any other pedal concerns. She denies any new pedal injuries. COUNT INCLUDES THE [facility] Medical History (Updated 07/23/25 @ 10:22 by Linn Breen DPM) Nail disorder Nail dystrophy Shingles Migraines Headache Hx of mammogram (~2024) Ectopic (~1988) Surgical History (Updated 05/10/25 @ 11:25 by Pearl Brito, [facility]) Hx of colonoscopy (~04/2025) Loss of teeth due to extraction History of section History of appendectomy Family History (Updated 03/30/25 @ 09:56 by Allyson Marte MA) Father COPD (chronic obstructive pulmonary disease) CHF (congestive heart failure) HTN (hypertension) AAA (abdominal aortic aneurysm) Asthma Heart failure Mother Neuropathy Legally blind Daughter No problems noted. Daughter No problems noted. Social History (Updated 03/30/25 @ 09:53 by Allyson Marte MA) Household Members: Children Both parents involved: No Caregiver staying overnight: No Housing: House Are you a primary day care director to a significant other at home: No Do you presently have visiting nurse or other home services: No 75 years or older and lives alone: No Alcohol intake: never Patient Tobacco Use Status: Never used Tobacco e-Cigarette/Vaping Use: Never Used Second Hand Smoke Exposure: No service: No Current occupational status: retired Cognitive needs: No Hearing needs: No Vision needs: Yes (reading glasses) Review of Systems Const Details: - Dermatological: Reports continued improvement in nail condition with clearer color and reduced subungual debris. All systems reviewed & are unremarkable except as noted in HPI and below Physical Exam Vital Signs: BMI result Body Mass Index 19.5 Extrem Other: Left lower extremity focused physical exam: Derm: Toenails noted to be thickened. Discoloration noted to be slightly improved with the worse being the hallucal nail. Improvement noted due to decreased subungual debris noted x5. Slight thickness noted to toenails x5 on the right foot. No open lesions abrasions or wounds noted. No clinical signs of infection. Skin turgor soft and within normal limits. Vascular: DP/PT pulses palpable. Capillary refill time less than 3 seconds. No varicosities noted. Pedal hair noted. Neuro: Protective sensation is grossly intact. Musculoskeletal: No pain on palpation to the forefoot and nails. Improved flexibility noted to the left forefoot. ROM of B/L forefoot, hindfoot, and ankles within normal limits. No crepitus noted. Gait within normal limits unassisted. Office Procedures AMB Debridement/Avulsion Podia Details: Debrided toenails x10 using a sterile Dremel without any incidents. [id number]-Ksvaeefxopr of Nail 6+ Procedure code (CPT) selection complete Results Reviewed Results Reviewed: Pathology of left hallucal nail (04/25/25): Abundant fungi identified, present in all nail fragments. Assessment & Plan Assessment & Plan (1) Onychomycosis: Code(s): B35.1 - Tinea unguium Category: Medical (2) Nail dystrophy: Code(s): L60.3 - Nail dystrophy Category: Medical (3) Nail disorder: Code(s): L60.9 - Nail disorder, unspecified Category: Medical Plan Patient was informed and verbally consented to the use of an ambient scribe for clinic note documentation during this visit. I discussed the patient's ongoing treatment for onychomycosis, confirming that her routine of filing the nails nightly is beneficial as it helps the medication penetrate the nail plate. I performed a debridement of all ten toenails. I refilled her prescription for Ciclopirox and advised her to continue applying it to all nails for preventative measures of the right foot. A follow-up visit was scheduled in two months to re-evaluate progress. - A prescription refill for Ciclopirox was sent to the pharmacy. - The patient was instructed to continue applying Ciclopirox to all toenails. - Advised the patient to continue filing the nails and that she can also sand the top surface of the nail to aid medication penetration. - Advised patient to keep feet and shoes clean and dry. - Consider transition to oral antifungal medication if symptoms worsen. RTC in 2 months. Orders: Orders AMB Debridement/Avulsion Podiatry 07/20/25 B35.1 - Tinea unguium, L60.3 - Nail dystrophy, L60.9 - Nail disorder, unspecified Medications: Refilled ciclopirox 8% 1 appl topical BEDTIME 6.6 mL 0RF Onychomycosis 4 weeks B35.1 - Tinea unguium, L60.3 - Nail dystrophy, L60.9 - Nail disorder, unspecified Coding Level of Care Code Est Pt Level 3 (73773) Diagnoses Onychomycosis B35.1 Nail dystrophy L60.3 Nail disorder L60.9 CPT Codes Skin Debridement - CPT: 88153-Debxxcoyghc of Nail 6+ ([id number]) Time Spent (min) 26 Comment 6 mins for procedure
== END 2025-07-20 09:44 | disposition home or self-care (01) ==
LOC: HO.HPODS 09:20
PROVIDERS: PCP Nurse Practitioner Family; Visit Provider Student in an Organized Health Care Education/Training Program
DX: B35.1 Tinea unguium (principal); L60.3 Nail dystrophy; L60.9 Nail disorder, unspecified
CPT/HCPCS: 11721; 99213

== ENCOUNTER → 2025-07-20 09:19 | Outpatient (BNVA) | payer OTHER, SELFPAY | PROVIDERS: PCP Nurse Practitioner Family; Visit Provider Student in an Organized Health Care Education/Training Program | DX: B35.1 Tinea unguium (principal); L60.3 Nail dystrophy; L60.9 Nail disorder, unspecified | CPT/HCPCS: 11721 ==